=== PATIENT | male | born 1950 | race Caucasian/White ===

== ENCOUNTER 2020-08-30 07:57 | Outpatient (NON) | payer MEDICARE, SELFPAY ==
[2020-08-30 10:56] LABS: Influenza Control Positive
[2020-08-30 22:46] LABS: SARS-CoV-2 RNA PCR Negative
== END 2020-08-30 07:58 ==
PROVIDERS: PCP Internal Medicine; Visit Provider Nurse Practitioner
DX: R53.83 Other fatigue (principal); Z20.822 Contact with and (suspected) exposure to COVID-19
CPT/HCPCS: 87804; C9803; U0003; U0005

== ENCOUNTER 2020-09-06 10:08 | Outpatient (CLI) | payer MEDICARE, SELFPAY ==
--- NOTE | ~2020-09-06 | CT_ITS ---
EXAMINATION: CT abdomen pelvis w con DATE: 09/06/2020 11:24 INDICATION: Left lower quadrant abdominal pain. TECHNIQUE: Computed tomography (CT) of the abdomen and pelvis was performed with 100 mL Omnipaque-350 intravenous contrast. Automated exposure control and iterative reconstruction technique were employe d. The dose-length product was 302.10 mGy-cm. COMPARISON: None FINDINGS: Mild discoid atelectasis in the bilateral lower lobes. 7 x 4 x 3 mm pleural-based nodule at the poste rior right lower lobe. Heart size is normal. No pericardial or pleural effusion. Mild focal hepatic s teatosis at the ligamentum teres. Cholecystectomy clips the gallbladder fossa. Nonspecific splenomega ly measuring 15.3 cm in maximal length. Pancreas, right kidney and bilateral adrenal glands are bryan l. There are 3 subcentimeter low-attenuation left renal cysts. Normal appendix. In the left hemipelvi s there is prominent inflammatory stranding stranding a peripherally enhancing 4.3 x 3.4 x 3.6 cm loc ulated fluid collection which is likely extraperitoneal located along the medial margin of the left i liopsoas and obturator internus muscles. Portion of the stranding extends towards a diverticulum jaxon g the proximal sigmoid colon this could represent sequela of prior diverticulitis. There is mild mass effect upon the left wall of the bladder which is focally thickened and hyperemic in the region of t he stranding suggesting secondary reactive cystitis. No evident bowel wall thickening or obstruction. No free intraperitoneal gas or fluid. Mild thoracolumbar levocurvature with mild to moderate lumbar spondylosis. IMPRESSION: 1. 4.3 x 3.4 x 3.6 cm likely extraperitoneal abscess in the left hemipelvis which could represent seq uela of sigmoid diverticulitis. 2. Focal hyperemic wall thickening of the left side of the bladder adjacent to the inflammatory stran ding suggesting secondary reactive cystitis. No definitive fistulous tract appreciated, but would cor relate with urinalysis. 3. Likely benign 7 x 4 x 3 mm pleural-based nodule in the right lower lobe. If the patient is low ris k for lung cancer, no follow-up is needed. If the patient is high risk (i.e., history of smoking or a sbestos or significant radiation exposure), optional follow-up low-dose noncontrast chest CT could be considered at 12 months. Reviewed, dictated and finalized at location A. NG TESTER IMPRESSION: 1. 4.3 x 3.4 x 3.6 cm likely extraperitoneal abscess in the left hemipelvis whi ch could represent sequela of sigmoid diverticulitis. 2. Focal hyperemic wall thickening of the left side of the bladder adjacent to the inflammatory stranding suggesting secondary reactive cystitis. No definitiv e fistulous tract appreciated, but would correlate with urinalysis. 3. Likely benign 7 x 4 x 3 mm pleural-based nodule in the right lower lobe. If the patient is low risk for lung cancer, no follow-up is needed. If the patient is high risk (i.e., history of smoking or asbestos or significant radiation ex posure), optional follow-up low-dose noncontrast chest CT could be considered a t 12 months.
[2020-09-06 11:15] LABS: Estimated Glomerular Filt Rate > 60
== END 2020-09-06 10:09 | disposition home or self-care (01) ==
PROVIDERS: PCP Internal Medicine; Visit Provider Nurse Practitioner
DX: R10.32 Left lower quadrant pain (principal); N32.9 Bladder disorder, unspecified; R91.1 Solitary pulmonary nodule; K68.19 Other retroperitoneal abscess
CPT/HCPCS: 74177; Q9967

== ENCOUNTER → 2020-09-24 11:09 | Outpatient (CLI) | payer MEDICARE, SELFPAY ==
--- NOTE | ~2020-09-24 | CT_ITS ---
EXAMINATION: CT abdomen pelvis w con DATE: 09/24/2020 11:37 INDICATION: Diverticulitis. Perforation. Abscess. TECHNIQUE: Computed tomography (CT) of the abdomen and pelvis was performed with 100 cc Omnipaque 350 intravenous contrast. The dose-length product was 422.15 mGy-cm. Automated exposure control and iter ative reconstruction technique were employed. COMPARISON: CT dated 09/06/2020. FINDINGS: There is improving phlegmonous change in the left pelvis of the left hemipelvis, likely sequela of si gmoid diverticulitis. Decreasing size of abscess measuring 2.9 x 2.3 cm compared with 3.5 x 4.3 cm on prior examination. There is diffuse bladder wall thickening. Bladder is not well distended. There is focal fatty infiltration of the liver near the falciform. Lung bases unremarkable. Heart size normal . The liver, spleen, pancreas, adrenal glands and right kidney are unremarkable. There are small subcen timeter hypodensities of the left kidney, most likely benign cysts. There are cholecystectomy clips. Stable partially visualized right lower lobe nodule IMPRESSION: 1. Improved phlegmonous change and abscess in the left hemipelvis, likely sequela of sigmoid divertic ulitis. 2: Poorly distended bladder with bladder wall thickening which may be due to adjacent inflammation an d/or cystitis. 3: Partially visualized right lower lobe nodule. Recommend follow-up low dose CT in 12 months. Reviewed, dictated and finalized at location B. [facility] CARE COORDINATOR IMPRESSION: 1. Improved phlegmonous change and abscess in the left hemipelvis, likely seque la of sigmoid diverticulitis. 2: Poorly distended bladder with bladder wall thickening which may be due to ad jacent inflammation and/or cystitis. 3: Partially visualized right lower lobe nodule. Recommend follow-up low dose C T in 12 months.
[2020-09-24 11:28] LABS: Estimated Glomerular Filt Rate > 60
== END ==
PROVIDERS: Visit Provider Surgery
DX: K57.20 Diverticulitis of large intestine with perforation and abscess without bleeding (principal)
CPT/HCPCS: 74177; Q9967

== ENCOUNTER → 2021-01-12 03:42 | Outpatient (CLI) | payer MEDICARE, SELFPAY ==
[2021-01-12 19:45] LABS: SARS-CoV-2 RNA PCR Negative
== END ==
PROVIDERS: PCP Internal Medicine; Visit Provider Internal Medicine Gastroenterology
DX: Z01.812 Encounter for preprocedural laboratory examination (principal); Z20.822 Contact with and (suspected) exposure to COVID-19
CPT/HCPCS: C9803; U0003; U0005

== ENCOUNTER 2021-01-16 01:17 | Day surgery (SDC) | payer MEDICARE, SELFPAY ==
[2020-09-25 10:22] VITALS: BMI 22.1
[2021-01-01 15:11] VITALS: BMI 22.1
[2021-01-16 09:25] VITALS: BP 137/79; PULSE 69; RESP 16; TEMP 36.2; O2SAT 99
[2021-01-16] MEDS: LACTATED RINGERS 1,000 ML 150 ML IV CONT (09:34)
--- NOTE | 2021-01-16 09:57 | WPDANESEPPF ---
Anes - Initial Pre Proc Eval Procedure: Operation Date: 01/16/21 10:30 Proposed Procedures p Colonoscopy - Isai Patino MD Date/Time: 01/16/21 09:57 Surgeon: Isai Patino MD Pre Op Diagnosis: diverticulitis Patient Data Age: 70 Gender: M Height: 5 ft 10 in Weight: 69.2 kg Last Vital Signs Temp 97.1 F L 01/16/21 09:25 Pulse 69 01/16/21 09:25 Resp 16 01/16/21 09:25 BP 137/79 01/16/21 09:25 Pulse Ox 99 01/16/21 09:25 Allergies Allergy/AdvReac Type Severity Reaction Status Date / Time bee venom protein (honey bee) Allergy swelling Verified 01/16/21 09:23 Penicillins Allergy Swelling Verified 01/16/21 09:23 Home Medications Medication Instructions Recorded Confirmed Type No Home Medications 01/16/21 01/16/21 History Patient hx anesthesia problems: none Family hx anesthesia problems: none PMFSH Past Medical History Medical History History of prostate cancer Polysubstance dependence in early, early partial, sustained full, or sustained partial remission Prostate cancer Umbilical hernia (~08/2016) Surgical History Surgical History H/O prostatectomy History of cataract surgery Hx of cholecystectomy Family History Family History Father MRSA infection Mother COPD (chronic obstructive pulmonary disease) Social History Social History Smoking packs per day: 2 Smoking cigarettes per day: 40.0 Years smoked: 15 Smoking pack-years: 30.00 Smoking status: Former smoker Tobacco type: cigarettes Alcohol intake: former Substance use: former Substance use type: marijuana Living arrangements: with family Additional occupation/education comments: Landlord Spiritual care concerns: No Anes - Eval Final PreProcedure Day of Procedure 01/16/21 09:57 Patient weight: normal Heart: regular rate and rhythm Lungs: clear to auscultation Airway: Mallampati scale class II Neurological: alert and oriented Last oral intake: >/= 8 hours ASA classification: II Emergent: no Anesthetic plan: proceed Anesthesia type and monitoring: general GIVS and standard monitoring Informed Consent: The patient's anesthetic plan and its attendant risks and benefits were discussed with the patient/family/POA. Questions were solicited and answers provided to the satisfaction of the patient/family/POA.
--- NOTE | 2021-01-16 10:19 | PM.HPGS ---
History of Present Illness History of Present Illness Consent: Risks, benefits, and alternatives have been discussed and questions answered. Patient agrees to proceed with procedure. Chief complaint: diverticulitis Narrative: Shashi Garibay is a 70 year old male with last colonoscopy 10 years ago, since then in September had diverticulitis now asymptomatic. Review of Systems Constitutional: Constitutional: Denies headache(s) and Denies weakness Eyes: Eyes: Denies blurry vision ENT: Reports Normal hearing present, Denies headache(s) and Denies neck pain Cardiovascular: Cardiovascular: Denies chest pain and Denies dyspnea Respiratory: Respiratory: Denies dyspnea Gastrointestinal: Gastrointestinal: Reports no additional gastrointestinal complaints Genitourinary: Genitourinary: Denies dysuria Musculoskeletal: Musculoskeletal: Denies neck pain Integumentary/Breasts: Skin/Breast: Denies dry skin Neurologic: Reports Normal hearing present, Denies headache(s) and Denies weakness Psychiatric: Psychiatric: Denies anxiety Endocrine: Endocrine: Denies change in body appearance Hematologic/Lymphatic: Hematologic/Lymphatic: Denies easy bleeding Allergic/Immunologic: Allergic/Immunologic: Denies urticaria PMFSH Past Medical History Medical History History of prostate cancer Polysubstance dependence in early, early partial, sustained full, or sustained partial remission Prostate cancer Umbilical hernia (~08/2016) Surgical History Surgical History H/O prostatectomy History of cataract surgery Hx of cholecystectomy Family History Family History Father MRSA infection Mother COPD (chronic obstructive pulmonary disease) Social History Social History Smoking packs per day: 2 Smoking cigarettes per day: 40.0 Years smoked: 15 Smoking pack-years: 30.00 Smoking status: Former smoker Tobacco type: cigarettes Alcohol intake: former Substance use: former Substance use type: marijuana Living arrangements: with family Additional occupation/education comments: [employer] Spiritual care concerns: No Meds Home Medications and Allergies Home Medications Medication Instructions Recorded Confirmed Type No Home Medications 01/16/21 01/16/21 History Allergies Allergy/AdvReac Type Severity Reaction Status Date / Time bee venom protein (honey bee) Allergy swelling Verified 01/16/21 09:23 Penicillins Allergy Swelling Verified 01/16/21 09:23 Vital Signs Vital Signs - 24 hr 01/16/21 09:25 Temperature 97.1 F L Pulse Rate 69 Respiratory Rate 16 Blood Pressure 137/79 Pulse Oximetry 99 Exam Const: General: comfortable and no acute distress HENMT: General nose exam: Normal nares present Eyes: General: appearance normal, both eyes and all related structures Neck: Neck: no JVD Resp: Auscultation: clear to auscultation bilaterally Cardio: Rate: regular rate Rhythm: regular rhythm GI: Inspection: non-distended GI Palp: Yes Soft to palpation Skin: General skin exam: normal color Neuro: General: gait normal Speech: normal speech Extrem: General: normal to inspection Psych: Mental Status: mental status grossly normal Assessment and Plan Assessment and plan (1) Colon cancer screening: Code(s): Z12.11 - Encounter for screening for malignant neoplasm of colon Status: Acute Assessment and Plan: colonoscopy
[2021-01-16 10:38] VITALS: BP 105/68; PULSE 59; RESP 14; O2SAT 99
[2021-01-16 10:48] VITALS: BP 110/69; PULSE 72; RESP 19; O2SAT 100
[2021-01-16 10:58] VITALS: BP 103/66; PULSE 76; RESP 20; O2SAT 100
== END 2021-01-16 11:17 | disposition home or self-care (01) ==
PROVIDERS: PCP Internal Medicine; Visit Provider Internal Medicine Gastroenterology
PROC: 0DJD8ZZ Inspection of Lower Intestinal Tract, Via Natural or Artificial Opening Endoscopic (ICD-10-PCS; CPT 45378; principal; 2021-01-16 10:30)
DX: Z12.11 Encounter for screening for malignant neoplasm of colon (principal); D12.2 Benign neoplasm of ascending colon; K63.5 Polyp of colon; K57.30 Diverticulosis of large intestine without perforation or abscess without bleeding; K64.8 Other hemorrhoids; F19.21 Other psychoactive substance dependence, in remission; Z85.46 Personal history of malignant neoplasm of prostate; Z87.891 Personal history of nicotine dependence
CPT/HCPCS: 45385; 88305; J2704; J7120

== ENCOUNTER 2021-05-20 10:52 | Outpatient (CLI) | payer MEDICARE, SELFPAY ==
--- NOTE | ~2021-05-20 | XR_ITS ---
EXAMINATION: XR shoulder LT min 2V DATE: 05/20/2021 11:20 INDICATION: Left shoulder pain. TECHNIQUE: 4 views of left shoulder were obtained. COMPARISON: None. FINDINGS: Bone alignment is normal. No fracture. Joint spaces are well maintained. IMPRESSION: 1. Normal left shoulder. Reviewed, dictated and finalized at location A. IMPRESSION: 1. Normal left shoulder.
== END 2021-05-20 10:53 | disposition home or self-care (01) ==
PROVIDERS: PCP Internal Medicine; Visit Provider Clinical Nurse Specialist
DX: M25.512 Pain in left shoulder (principal)
CPT/HCPCS: 73030

== ENCOUNTER 2021-05-24 06:33 | Outpatient (CLI) | payer MEDICARE, SELFPAY ==
--- NOTE | ~2021-05-24 | MR_ITS ---
EXAMINATION: MR shoulder LT wo con DATE: 05/24/2021 07:30 INDICATION: Left shoulder pain TECHNIQUE: Magnetic resonance imaging (MRI) of the left shoulder was performed without intravenous co ntrast. Sequences included axial PD-weighted FS FSE, coronal oblique PD-weighted FS FSE, coronal obli que T2-weighted FS FSE, sagittal PD-weighted FS FSE, and sagittal T1-weighted SE. COMPARISON: None. FINDINGS: Coracoacromial arch: The acromion undersurface is curved in morphology (type II). The coracoacromial ligament is normal. M ild acromioclavicular osteoarthritis. Rotator cuff: The supraspinatus, infraspinatus and teres minor tendons are normal. The subscapularis tendon is norm al. Normal rotator cuff muscle bulk and signal. Biceps tendon, glenoid labrum and glenohumeral cartilage: Long head of the biceps tendon is normal. Normal anterosuperior sublabral foramen. There is amorphous increased signal suspicious for tear at the confluence of the superior glenoid labrum and the long h ead biceps tendon. Subtle partial-thickness linear tear near the chondral labral junction at the infe rior glenoid. More irregular tear extending across the thickened and globular anteroinferior labrum. Thickening of the adjacent inferior glenohumeral ligament consistent with scarring related to chronic at least partial tear. Glenohumeral cartilage is normal. Fluid: Physiologic amount of fluid in the glenohumeral joint and biceps tendon sheath. No loose osteochondra l bodies. No abnormal fluid signal in the subacromial/subdeltoid bursa to suggest bursitis. Bones: Normal marrow signal with no edema, fracture or abnormal marrow replacing process. IMPRESSION: 1. Tear of the anteroinferior to inferior glenoid labrum and adjacent anteroinferior glenohumeral lig ament without surrounding edema suggesting chronic Bankart lesion but without evident Hill-Sachs frac ture deformity. 2. Focal degenerative tearing of the biceps labral complex at the confluence of the labrum and long h ead biceps tendon. Reviewed, dictated and finalized at location A. IMPRESSION: 1. Tear of the anteroinferior to inferior glenoid labrum and adjacent anteroinf erior glenohumeral ligament without surrounding edema suggesting chronic Bankar t lesion but without evident Hill-Sachs fracture deformity. 2. Focal degenerative tearing of the biceps labral complex at the confluence of the labrum and long head biceps tendon.
== END 2021-05-24 06:34 | disposition home or self-care (01) ==
LOC: ANHIMG 06:40
PROVIDERS: PCP Internal Medicine; Visit Provider Clinical Nurse Specialist
DX: S43.492A Other sprain of left shoulder joint, initial encounter (principal)
CPT/HCPCS: 73221

== ENCOUNTER 2021-07-05 12:44 | Outpatient (CLI) | payer MEDICARE, SELFPAY ==
--- NOTE | ~2021-07-05 | XR_ITS ---
EXAMINATION: XR lg joint inject/asp w image DATE: 07/05/2021 13:28 INDICATION: Left shoulder pain. TECHNIQUE: A time-out was performed to verify the patient's name, date of , and procedure to b e performed. The procedure including the risks, benefits, and alternatives was discussed with the pat ient. Risks discussed included bleeding and infection. The patient understood the risks and agreed to proceed. The skin overlying the left glenoid humeral joint was prepped and draped in usual sterile fashion. Anesthetic was administered with 1% lidocaine subcutaneously. A 22 G needle was advanced u nder fluoroscopic guidance into the joint. Injection of 1 mL of Omnipaque 240 confirmed intra-articu lar position of the needle. Subsequently, injectate consisting of 3 mL 1% lidocaine and 1 mL 80 mg/m L Depo-Medrol was instilled. The needle was removed and the entry site was cleaned and dressed. The re were no immediate complications. Fluoroscopy exposure time was 0.0 minutes. The total number of im ages was 2. FINDINGS: Real-time fluoroscopy demonstrates the needle in the left glenohumeral joint. Patient's bravo n prior to procedure:/10. Patient's pain following the procedure: 0/10. IMPRESSION: 1. Fluoroscopy guided left glenohumeral joint injection of local anesthetic and steroid with decrease in the patient's presenting pain. Reviewed, dictated and finalized at location A. 3 PASTRY
== END 2021-07-05 12:45 | disposition home or self-care (01) ==
LOC: ANHIMG 12:49
PROVIDERS: PCP Internal Medicine; Visit Provider Orthopaedic Surgery
DX: M25.512 Pain in left shoulder (principal); M75.02 Adhesive capsulitis of left shoulder
CPT/HCPCS: 20610; 77002; J1040; Q9966

== ENCOUNTER 2022-04-10 10:03 | Outpatient (CLI) | payer MEDICARE, SELFPAY ==
[2022-04-10 18:52] LABS: Basophils Percent Auto 0.4 % (0.2-1.2); Eosinophils Percent Auto 0.7 % (0-4.4); Hematocrit 42.7 % (42.0-52.0); Hemoglobin 14.7 g/dL (14.0-18.0); Immature Granulocyte Absolute 0.02 K/mm3 (0.00-0.031); Immature Granulocyte Percent A 0.4 % (0-0.5); Lymphocytes Absolute Auto 1.87 K/mm3 (0.9-3.2); Lymphocytes Percent Auto 34.5 % (18.3-44.2); Mean Corpuscular HGB Conc 34.4 g/dl (32-36); Mean Corpuscular Hemoglobin 31.8 pg (26-34); Mean Corpuscular Volume 92.4 fl (80-100); Mean Platelet Volume 11.2 fl (7.4-10.4); Monocytes Absolute Auto 0.3 K/mm3 (0.1-0.6); Monocytes Percent Auto 5.9 % (2.6-8.5); Neutrophils Absolute Auto 3.2 K/mm3 (1.3-6.7); Neutrophils Percent Auto 58.1 % (45.5-73.1); Platelet Count Result 147 k/mm3 (150-375); Red Blood Count 4.62 M/mm3 (4.6-6.20); White Blood Count 5.4 K/mm3 (4.5-10.0)
[2022-04-10 18:59] LABS: Alanine Aminotransferase 16 U/L (6-50); Albumin Level 4.3 g/dL (3.5-5.1); Alkaline Phosphatase 80 U/L (38-126); Anion Gap 6 mmol/L (8-16); Aspartate Amino Transferase 33 U/L (17-59); Bilirubin,Total 1.4 mg/dL (0.2-1.3); Blood Urea Nitrogen 12 mg/dL (9-20); Calcium 10.5 mg/dL (8.4-10.2); Carbon Dioxide 30 mmol/L (22-30); Chloride 105 mmol/L (98-107); Cholesterol 156 mg/dL (0-200); Estimated Glomerular Filt Rate > 60; Glucose 81 mg/dL (65-110); HDL Direct 40 mg/dL; Potassium 4.7 mmol/L (3.4-5.0); Sodium 141 mmol/L (137-145); Triglycerides 74 mg/dL (<150)
[2022-04-10 19:10] LABS: LDL Cholesterol Direct 89 mg/dL
[2022-04-10 19:56] LABS: Vitamin D 25 Hydroxy 55.9 ng/mL
== END 2022-04-10 10:04 | disposition home or self-care (01) ==
PROVIDERS: PCP Internal Medicine; Visit Provider Clinical Nurse Specialist
DX: E78.5 Hyperlipidemia, unspecified (principal); E55.9 Vitamin D deficiency, unspecified; E21.3 Hyperparathyroidism, unspecified; E80.6 Other disorders of bilirubin metabolism; G47.9 Sleep disorder, unspecified; R42 Dizziness and giddiness
CPT/HCPCS: 36415; 80053; 80061; 82306; 83970; 84443; 85025

== ENCOUNTER → 2022-06-10 08:43 | Outpatient (CLI) | payer MEDICARE, SELFPAY ==
--- NOTE | ~2022-06-10 | DEXA_ITS ---
Bone Density Report Name: VICKY BENITEZ Age: 71 Sex: Male Ethnicity: White Date of : 1950 Indication: hyperparathyroidism; height loss; Referring Provider: Sailaja Mcintosh Study: Bone densitometry was performed. Exam Date: June 10, 2022 Accession number: [id number] Bone Density: Region BMD T-score Z-score Classification AP Spine (L1-L4) 1.106 0.1 1.0 Normal Femoral Neck (Left) 0.714 -1.6 -0.4 Osteopenia Total Hip (Left) 0.853 -1.2 -0.5 Osteopenia Femoral Neck (Right) 0.797 -1.0 0.2 Normal Total Hip (Right) 0.984 -0.3 0.4 Normal Total Hip Mean 0.919 -0.8 -0.1 Normal World Health Organization criteria for BMD impression classify patients as: Normal (T-score at or above -1.0), Osteopenia (T-score between -1.0 and -2.5), or Osteoporosis (T-score at or below -2.5). 10-year Fracture Risk(1): Major Osteoporotic Fracture 6.2% Hip Fracture 1.4% Reported Risk Factors: [place] (), Neck BMD=0.714, BMI=23.0 (1) FRAX(R) Version 3.08. Fracture probability calculated for an untreated patient. Fracture probability may be lower if the patient has received treatment. Clinical Information Provided by Patient: Has used the following medications: Vitamin D Has the following medical conditions: Hyperparathyroidism Patient maximum height was 70.5 No regular weight bearing exercise Does not regularly consume dairy products Drinks caffeinated beverages Impression: The patient has low bone mass, based on the Left Femoral Neck T-score. The patient has an estimated ten-year risk of hip fracture of 1.4% and an estimated ten-year risk of major fracture of 6.2%, based on the WHO FRAX algorithm. Discussion: BONE DENSITY IS LOW AT ONE OR MORE SKELETAL SITES. This patient's lowest T-score is low at one or more skeletal sites. It meets the World Health Organization's (WHO) criteria for ?low bone mass? (T-score between -1.0 and -2.5). The patient's 10-year risk of fracture as calculated by FRAX is less than the threshold where pharmacological therapy is recommended by the National Osteoporosis Foundation (NOF). However, all treatment decisions require clinical judgment and consideration of individual patient factors, including patient preferences, comorbidities, previous drug use, risk factors not captured in the FRAX model (e.g., frailty, falls, vitamin D deficiency, increased bone turnover, interval significant decline in bone density) and possible under or overestimation of fracture risk by FRAX. The patient should follow a healthful lifestyle (good nutrition with adequate calcium and vitamin D, and appropriate weight-bearing exercise). Follow-Up: Consider repeating this study in 2 to 3 years to reassess this patient's status, or sooner if there is some new clinical indication. Reported by: [facility] on 06/10
== END ==
PROVIDERS: PCP Internal Medicine; Visit Provider Clinical Nurse Specialist
DX: E21.3 Hyperparathyroidism, unspecified (principal); M85.852 Other specified disorders of bone density and structure, left thigh
CPT/HCPCS: 77080

== ENCOUNTER 2022-10-10 10:13 | Outpatient (CLI) | payer MEDICARE, SELFPAY ==
--- NOTE | ~2022-10-10 | NM_ITS ---
EXAMINATION: NM parathyroid imaging w spect DATE: 10/10/2022 13:56 INDICATION: Parathyroid adenoma TECHNIQUE: 18.4 mCi Tc99m sestamibi (Cardiolite) was administered by intravenous route. Anterior imag es of the neck were obtained at 10 minutes and 3 hours. Additional delayed 3 plane SPECT imaging was obtained. COMPARISON: None. FINDINGS/IMPRESSION: Persistent focus of activity on delayed images in the area of the deep inferior margin of the left th yroid lobe consistent with parathyroid adenoma. Reviewed, dictated and finalized at location A. ENGER OFFICE
== END 2022-10-10 10:14 | disposition home or self-care (01) ==
LOC: ANHIMG 10:18
PROVIDERS: PCP Internal Medicine; Visit Provider Otolaryngology
DX: D35.1 Benign neoplasm of parathyroid gland (principal); E21.3 Hyperparathyroidism, unspecified
CPT/HCPCS: 78071; A9500

== ENCOUNTER → 2022-10-27 09:28 | Outpatient (CLI) | payer MEDICARE, SELFPAY ==
--- NOTE | ~2022-10-27 | US_ITS ---
Thyroid ultrasound. Clinical History: Benign neoplasm left parathyroid gland Findings: Real-time sonography of the thyroid gland was performed. The right lobe measures 5.6 x 2.1 x 2.0 cm. The left lobe measures 6.0 x 2.3 x 1.6 cm. The isthmus is 4 mm in AP diameter. Several scattered bilateral subcentimeter hypoechoic or cystic nodules are present. Largest nodules i n the left midpole measuring 4 mm in diameter. Impression: No significant abnormality seen. Tiny thyroid nodules, as noted above, are of doubtful clinical signi ficance, and require no further follow-up. Reviewed, dictated and finalized at location . Impression: No significant abnormality seen. Tiny thyroid nodules, as noted above, are of d oubtful clinical significance, and require no further follow-up.
== END ==
PROVIDERS: PCP Internal Medicine; Visit Provider Otolaryngology
DX: D35.1 Benign neoplasm of parathyroid gland (principal); E04.2 Nontoxic multinodular goiter
CPT/HCPCS: 76536

== ENCOUNTER 2022-11-12 10:21 | Outpatient (CLI) | payer MEDICARE, SELFPAY ==
--- NOTE | 2022-11-12 10:30 | ECG_ITS ---
Measurements Intervals [place] Rate: 70 P: 80 [place]: 156 QRS: 30 QRSD: 91 T: 30 QT: 369 QTc: 399 Interpretive Statements SINUS RHYTHM INCOMPLETE RIGHT BUNDLE BRANCH BLOCK DELAYED PRECORDIAL R/S TRANSITION BORDERLINE ST-T WAVE ABNORMALITY- INFERIOR LEADS BASELINE ARTIFACT- I, II, III, AVR, AVL, AVF, V4-V6 BORDERLINE ECG NO PREVIOUS ECG AVAILABLE FOR COMPARISON Electronically Signed On 11-12-2022 12:32:46 CDT by Ammon Beth D.O.
== END 2022-11-12 10:22 | disposition home or self-care (01) ==
LOC: ANHSURGERY 10:27
PROVIDERS: PCP Internal Medicine; Visit Provider Otolaryngology
DX: Z87.891 Personal history of nicotine dependence (principal); Z01.818 Encounter for other preprocedural examination; I45.10 Unspecified right bundle-branch block
CPT/HCPCS: 93005

== ENCOUNTER 2022-11-18 00:30 | Day surgery (SDC) | payer MEDICARE, SELFPAY ==
--- NOTE | 2022-11-07 13:50 | PC.NURSE ---
Report to the Outpatient Waiting Room, entrance under the green pavilion located off [facility], at time _0830 NUC MED AT 0930 on date __11/18/22 . Planned Procedure Time: __1200 . Time changes happen often and if your time is changed the preop area will call you the afternoon before. - You and your visitor will be asked to self-screen and do not enter if you have any COVID symptoms. - Only one visitor is requested with a max of two and NO children visitors are allowed at this time. - The patient visitor may be requested to leave or wait in car when not with patient due to distancing restrictions. - A mask is optional within the hospital at this time. Patients may have clear liquids (water, carbonated beverages, clear teas, apple juice) until 3 hours prior to surgery with a maximum of 20 ounces. - No food from midnight until time of surgery - Infants may have breast milk until 4 hours before surgery, formula 6 hours prior to surgery. - Children will be allowed to drink immediately following surgery. If applicable, please bring a bottle or sippy cup to assist with drinking. Juice, water, soda, and popsicles are readily available. For infants on formula, please bring formula the day of surgery. Pacifiers are allowed. Take the following medications with a SIP of water the morning of surgery: ___NONE DO NOT STOP ANY OF YOUR OTHER PRESCRIPTION MEDICATIONS PRIOR TO SURGERY ?EXCEPT THE FOLLOWING Medications to discontinue per physician ALL VITAMINS/SUPPLEMENTS 3 DAYS PRE OP . LAST DOSE 11/14/22 Please no make-up, nail niuean, hairspray, perfume, deodorant, or body powder the day of surgery. No jewelry (including any body piercings) or valuables the day of surgery, leave them at home. Please take a shower or bath the night before, or the morning of, surgery with an antibacterial soap. Wear comfortable, loose fitting clothing. Children are encouraged to wear pajamas. - Jewelry must be removed prior to entering the operating room. Rings and piercings that are not removed may be cut off. - The hospital will not accept responsibility for valuables. - Please leave all valuables, including medications, at home the day of surgery. If you are going home after surgery, a licensed trolley coach driver must drive you home. - NO public transportation without another adult if you receive anesthesia. - We recommend that an adult stay with you for 24 hours following discharge. - We also recommend that you do not drive, make important decision, drink alcoholic beverages, or take any drugs that were not prescribed by your health care provider for at least 24 hours after your discharge time. For Pediatric surgeries, we recommend two adults accompany the child home. Follow any additional instructions given to you from your surgeon. If you or anyone in your household have experienced Covid symptoms in the past week, please notify your surgeon or the nurse liaison at the phone number below for possible testing. Telephone instructions given to ___PATIENT and asked if any additional questions and then verbalized understanding. Patient advised to call surgeon office or pre surgery nurse liaison [phone] if any additional questions.
[2022-11-07 13:58] VITALS: BMI 22.2
--- NOTE | 2022-11-17 17:54 | PM.IMHP ---
H&P: HPI History of Present Illness Date/Time: 11/17/22 17:54 Chief Complaint: hypercalcemia hyperparathyroidism parathyroid adenoma osteopenia Narrative: planned surgical procedure Review of Systems Review of Systems: All systems reviewed & are unremarkable except as noted in HPI and below [facility] Past Medical History Medical History History of prostate cancer Polysubstance dependence in early, early partial, sustained full, or sustained partial remission Prostate cancer Umbilical hernia (~08/2016) Surgical History Surgical History H/O prostatectomy History of cataract surgery Hx of cholecystectomy Family History Family History Father MRSA infection Mother COPD (chronic obstructive pulmonary disease) Sibling Throat cancer Social History Social History (Updated 10/02/22 @ 09:58 by LAURA Castro) Smoking packs per day: 2 Smoking cigarettes per day: 40.0 Years smoked: 15 Smoking pack-years: 30.00 Smoking status: Former smoker Tobacco type: cigarettes Smoking end date: 08/17/84 Alcohol intake: former Substance use: former Substance use type: marijuana Lack of Transportation: No Lack of Food: Never True Current Housing: I Have Housing Concerned About Future Housing: No Difficulty Paying Gas/Electric Bills: No Difficulty Paying for Meds: No Currently Unemployed: No Education: Associate Degree Difficulty w/ Childcare or Family Care: No Living arrangements: with family Occupation/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 Spiritual care concerns: No Meds Home Medications and Allergies Home Medications Medication Instructions Recorded Confirmed Type cetirizine 10 mg tablet (Zyrtec) 10 mg PO DAILY PRN Allergy Symptoms 03/05/21 11/07/22 History cholecalciferol (vitamin D3) 10 400 unit PO DAILY 03/05/21 11/07/22 History mcg (400 unit) capsule epinephrine 0.3 mg/0.3 mL 0.3 mg (0.3 mL) IM ONCE PRN 03/05/21 11/07/22 Rx injection, auto-injector hypersensitivity reaction #2 ea turmeric 400 mg capsule 400 mg PO DAILY 03/05/21 11/07/22 History mecobalamin (vitamin B12) 1,000 1,000 mcg PO DAILY 05/17/21 11/07/22 History mcg chewable tablet Allergies Allergy/AdvReac Type Severity Reaction Status Date / Time bee venom protein (honey bee) Allergy swelling Verified 11/07/22 13:38 Penicillins Allergy Swelling Verified 11/07/22 13:38 Exam Narrative: Normal ENT exam Assessment and Plan Assessment and plan (1) Parathyroid adenoma: Code(s): D35.1 - Benign neoplasm of parathyroid gland Status: Acute Assessment and Plan: OR 4 gland parathyroid exploration will start on left side with recurrent laryngeal nerve monitoring risks of surgery discussed biggest risk and a inability to find parathyroid adenoma. Patient aware I will not excise 3-1/2 glands if I can not find the adenoma will refer to high volume head and neck surgeon. Second largest risk for recurrent laryngeal nerve injury albeit rare and parathyroid exploration. Bleeding infection postoperative seroma from airway compromise postoperatively. Patient voiced understanding of these risks. Patient will have to take a prolonged course of postoperative calcium if adenoma identified. Drain placement drain removal. Patient voiced understanding of these risks and agreed. Will need preoperative sestamibi injection, will need preoperative parathyroid hormone.
[2022-11-18] VITALS (10 sets, daily range): BP systolic 104–175; BP diastolic 67–91; PULSE 70–110; RESP 12–20; TEMP 36.6; O2SAT 94–100
--- NOTE | ~2022-11-18 | NM_ITS ---
EXAMINATION: NM parathyroid injection only DATE: 11/18/2022 10:11 INDICATION: Parathyroid adenoma TECHNIQUE: 2.6 mCi Tc99m sestamibi (Cardiolite) was administered by intravenous route for marking for planned parathyroidectomy. No images were recorded. FINDINGS/IMPRESSION: Radiopharmaceutical injection for intraoperative identification of a parathyroid adenoma with no dmia rded imaging. See operative note for further detail. Reviewed, dictated and finalized at location A.
--- NOTE | 2022-11-18 07:15 | WPDHPUPDATE1 ---
History and Physical Update Update Date/Time: 11/18/22 07:15 History and Physical has been reviewed, including an updated exam of the patient. There are NO changes in the patient's condition. Risks, benefits, and alternatives have been discussed and questions answered. Patient agrees to proceed with procedure.
--- NOTE | 2022-11-18 08:50 | WPDANESEPPF ---
Anes - Initial Pre Proc Eval Procedure: Operation Date: 11/18/22 12:00 Proposed Procedures p Left Parathyroidectomy - Dante Okeefe MD Date/Time: 11/18/22 08:50 Surgeon: Dante Okeefe MD Pre Op Diagnosis: Parathyroid Adenoma Patient Data Age: 71 Gender: M Height: 1.78 m Weight: 70.35 kg Allergies Allergy/AdvReac Type Severity Reaction Status Date / Time Penicillins Allergy Severe Swelling Verified 11/18/22 08:33 bee venom protein (honey bee) Allergy Unknown swelling Verified 11/18/22 08:33 Home Medications Medication Instructions Recorded Confirmed Type cetirizine 10 mg tablet (Zyrtec) 10 mg PO DAILY PRN Allergy Symptoms 03/05/21 11/18/22 History cholecalciferol (vitamin D3) 10 400 unit PO DAILY 03/05/21 11/18/22 History mcg (400 unit) capsule epinephrine 0.3 mg/0.3 mL 0.3 mg (0.3 mL) IM ONCE PRN 03/05/21 11/07/22 Rx injection, auto-injector hypersensitivity reaction #2 ea turmeric 400 mg capsule 400 mg PO DAILY 03/05/21 11/18/22 History mecobalamin (vitamin B12) 1,000 1,000 mcg PO DAILY 05/17/21 11/18/22 History mcg chewable tablet ECG: Date of Service: 11/12/22 Procedure(s): CA 12 lead EKG Accession Number(s): [id number] cc: ~ ? Measurements Intervals? [place]? Rate: ? 70 ? P:? 80 [place]: ? 156? QRS:? 30 QRSD: ? 91 ? T:? 30 QT: ? 369? QTc:? 399? Interpretive Statements SINUS RHYTHM INCOMPLETE RIGHT BUNDLE BRANCH BLOCK DELAYED PRECORDIAL R/S TRANSITION BORDERLINE ST-T WAVE ABNORMALITY- INFERIOR LEADS BASELINE ARTIFACT- I, II, III, AVR, AVL, AVF, V4-V6 BORDERLINE ECG NO PREVIOUS ECG AVAILABLE FOR COMPARISON Electronically Signed On 11-12-2022 12:32:46 CDT by Ammon Beth D.O. Patient hx anesthesia problems: none Family hx anesthesia problems: none Results Review: All pre-operative results and documents have been reviewed as part of the pre-operative evaluation. [facility] Past Medical History Medical History History of prostate cancer Polysubstance dependence in early, early partial, sustained full, or sustained partial remission Prostate cancer Umbilical hernia (~08/2016) Surgical History Surgical History H/O prostatectomy History of cataract surgery Hx of cholecystectomy Family History Family History Father MRSA infection Mother COPD (chronic obstructive pulmonary disease) Sibling Throat cancer Social History Social History (Updated 10/02/22 @ 09:58 by LAURA Castro) Smoking packs per day: 2 Smoking cigarettes per day: 40.0 Years smoked: 15 Smoking pack-years: 30.00 Smoking status: Former smoker Tobacco type: cigarettes Smoking end date: 08/17/84 Alcohol intake: former Substance use: former Substance use type: marijuana Lack of Transportation: No Lack of Food: Never True Current Housing: I Have Housing Concerned About Future Housing: No Difficulty Paying Gas/Electric Bills: No Difficulty Paying for Meds: No Currently Unemployed: No Education: Associate Degree Difficulty w/ Childcare or Family Care: No Living arrangements: with family 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
[2022-11-18 09:45] LABS: Parathyroid Intact 203.9 pg/mL (7.5-53.5)
[2022-11-18] MEDS: ACETAMINOPHEN 500 MG TABLET 1000 MG PO (10:35)
[2022-11-18] MEDS: LACTATED RINGERS 1,000 ML 30 ML IV CONT ×2 (10:35→17:36)
[2022-11-18] MEDS: ceFAZolin 2 GM/D5W 50 ML 2 GM/50 ML BAG IVPB (13:04)
[2022-11-18] MEDS: LIDO 1%/EPINEPHRINE 1:100,000 50 ML VIAL 20 ML INFILTRATE (16:40)
[2022-11-18] MEDS: ceFAZolin SODIUM 1 GM VIAL 2 GM IV PUSH (17:01)
[2022-11-18 17:06] LABS: Parathyroid Intact 160.2 pg/mL (7.5-53.5)
[2022-11-18 17:24] LABS: Parathyroid Intact 110.5 pg/mL (7.5-53.5)
--- NOTE | 2022-11-18 18:05 | P.OP_ITS ---
Procedure Note - Detailed Date of Procedure 11/18/22 Pre-op Diagnosis Parathyroid Adenoma Post-op Diagnosis Same Procedure Performed excision of giant left-sided parathyroid adenoma Surgeon Dante Okeefe MD Anesthesia General Indications see above Findings large about 5 cm left-sided inferior based adenoid superior gland devascularized as well anterior to the recurrent laryngeal nerve nonvisualized throughout procedure Description of Procedure patient identified consent verified. Patient brought operating room. Time-out performed. General anesthesia induced endotracheal tube secured Nims monitoring tube. Patient prepped draped positioned procedure confirmed Nims monitoring tube confirmed. Sestamibi scan injected preop preop PTH 200. Collar incision made 1.5 fingerbreadths above the sternal notch/clavicles. This carried down through the dermis. Bovie electrocautery carried through the platysma subplatysmal flaps elevated dura hooks placed. Midline raphe identified carried down to the thyroid with bipolar electrocautery. Imaging was again reviewed confirm left-sided localization. Dissection was carried out deep to the sternothyroid around the thyroid lobe retracting it medially. Middle thyroid vein ligated. At this time a bulge was noted near the region 1 would expect to find the inferior thyroid artery excuse me inferior parathyroid. This was dissected noted to be very very large. Multiple biopsies were taken the entire mass necessitating time on the table to allow for frozen pathology to return all were confirmed to be parathyroid. A portion was resected and then more tumor was noted and connection to the posterior aspect of was previously resected. At this time the PTH was 2000. The decision was made to resect the entire mass given that all biopsy showed parathyroid adenoma. The mass was not necessarily stuck to anything. To be wedged between portion of the thyroid and perhaps the posterior lobe tubercle. Mass was resected about 5 cm in greatest dimension s uperior gland also devascularized. Recurrent laryngeal nerve appeared to be protected the entire time is was deep to the plane of surgery. Blood loss about 50 cc. Preop PTH 200 following several PTH dropped on 100. Decision was made to close. As the status of the nerve was unknown at the 2 left-sided glands were identified. Wound was copiously irrigated 7 Icelandic drain placed deep layer closed straps in the midline with 3-0 Vicryl interrupted sutures platysma deep dermal layer with 3-0 interrupted Vicryl sutures. Drain stitch was a 3-0 nylon. 4-0 Monocryl subdermal placed. Skin glue placed above this. Patient tolerated the procedure well no immediate complications. Voice will be checked in PACU. One more PTH will be checked in PACU. Blood loss about 50 cc. Care the patient given Anesthesiology. I performed all dictated portions of procedure. Estimated Blood Loss -50.0 Urine Output -500.0 Drains Yes Packing No Pathology Yes Complications No immediate complications Condition Stable Disposition PACU [facility] Billing Surgery - Charge Forward: Surgery Billing
[2022-11-18 18:14] LABS: Parathyroid Intact 69.1 pg/mL (7.5-53.5)
--- NOTE | 2022-11-18 18:34 | SUR.PHASEI ---
1830 - dr. parson at bedside talking with pt. dr. parson aware of PTH 69.1
[2022-11-18] MEDS: oxyCODONE HCL (*CRX) 5 MG TAB IR PO (19:49)
== END 2022-11-18 20:00 | disposition home or self-care (01) ==
PROVIDERS: PCP Internal Medicine; Visit Provider Otolaryngology
PROC: (CPT 60500; principal; 2022-11-18 12:00)
DX: D35.1 Benign neoplasm of parathyroid gland (principal); F19.21 Other psychoactive substance dependence, in remission; Z87.891 Personal history of nicotine dependence; Z85.46 Personal history of malignant neoplasm of prostate
CPT/HCPCS: 60500; 36415; 78808; 83970; 88304; 88305; 88331; A9270; A9500; J0330; J0690; J1100; J2405; J2704; J3010; J7120

== ENCOUNTER 2022-12-11 12:41 | Outpatient (CLI) | payer MEDICARE, SELFPAY ==
[2022-12-11 19:17] LABS: Magnesium 2.1 mg/dL (1.6-2.3)
[2022-12-11 19:18] LABS: Vitamin D 25 Hydroxy 51.6 ng/mL
[2022-12-11 19:27] LABS: Parathyroid Intact 65.8 pg/mL (7.5-53.5)
[2022-12-15 12:43] LABS: Ionized Calcium 4.9 mg/dL (4.7-5.5)
== END 2022-12-11 12:42 | disposition home or self-care (01) ==
LOC: ANHGOSHLAB 12:43
PROVIDERS: PCP Internal Medicine; Visit Provider Otolaryngology
DX: D35.1 Benign neoplasm of parathyroid gland (principal); E83.42 Hypomagnesemia; E83.51 Hypocalcemia
CPT/HCPCS: 36415; 82306; 82330; 83735; 83970

== ENCOUNTER 2023-01-15 10:03 | Outpatient (CLI) | payer MEDICARE, SELFPAY ==
[2023-01-15 18:53] LABS: Parathyroid Intact 91.1 pg/mL (7.5-53.5)
== END 2023-01-15 10:04 | disposition home or self-care (01) ==
LOC: ANHGOSHLAB 10:04
PROVIDERS: PCP Internal Medicine; Visit Provider Clinical Nurse Specialist
DX: D35.1 Benign neoplasm of parathyroid gland (principal)
CPT/HCPCS: 36415; 83970

== ENCOUNTER 2023-02-02 12:58 | Outpatient (CLI) | payer MEDICARE, SELFPAY ==
[2023-02-02 19:25] LABS: Anion Gap 4 mmol/L (8-16); Blood Urea Nitrogen 10 mg/dL (9-20); Calcium 8.9 mg/dL (8.4-10.2); Carbon Dioxide 28 mmol/L (22-30); Chloride 106 mmol/L (98-107); Estimated Glomerular Filt Rate > 60; Glucose 80 mg/dL (65-110); Potassium 4.2 mmol/L (3.4-5.0); Sodium 138 mmol/L (137-145)
== END 2023-02-02 12:59 | disposition home or self-care (01) ==
LOC: ANHGOSHLAB 13:01
PROVIDERS: PCP Internal Medicine
DX: N28.9 Disorder of kidney and ureter, unspecified (principal)
CPT/HCPCS: 36415; 80048

== ENCOUNTER 2023-08-03 11:35 | Outpatient (CLI) | payer MEDICARE, SELFPAY ==
[2023-08-03 20:27] LABS: Calcium 8.8 mg/dL (8.4-10.2)
[2023-08-03 20:35] LABS: Parathyroid Intact 75.4 pg/mL (7.5-53.5)
== END 2023-08-03 11:36 | disposition home or self-care (01) ==
PROVIDERS: PCP Internal Medicine; Visit Provider Otolaryngology
DX: E83.52 Hypercalcemia (principal)
CPT/HCPCS: 36415; 82310; 83970

== ENCOUNTER 2023-10-08 12:23 | Emergency (ER) | payer MEDICARE, SELFPAY ==
--- NOTE | ~2023-10-08 | XR_ITS ---
EXAMINATION: XR chest 2V DATE: 10/08/2023 13:36 INDICATION: Cough and congestion TECHNIQUE: PA and lateral views of the chest are obtained. COMPARISON: None available FINDINGS: The lungs are free of acute opacities. No pleural effusion or pneumothorax. The cardiomedia stinal silhouette is normal. There is moderate thoracic spondylosis. IMPRESSION: 1. No acute cardiopulmonary abnormality. Reviewed, dictated and finalized at location [facility]
[2023-10-08 12:32] VITALS: BP 130/69; PULSE 93; RESP 22; TEMP 36.5; O2SAT 99
[2023-10-08 13:18] LABS: Influenza A QL RT-PCR Negative (Negative); Influenza B QL RT-PCR Negative (Negative); SARS-CoV-2 RNA PCR Negative (Negative)
[2023-10-08 13:32] VITALS: O2SAT 99
--- NOTE | 2023-10-08 13:45 | ECG_ITS ---
Measurements Intervals [place] Rate: 90 P: 79 [place]: 146 QRS: 25 QRSD: 84 T: 64 QT: 368 QTc: 452 Interpretive Statements SINUS RHYTHM MILD NONSPECIFIC T-WAVE ABNORMALITY ABNORMAL ECG ] COMPARED TO ECG 11/12/2022 11:40:13 NO SIGNIFICANT CHANGES Electronically Signed On 10-09-2023 12:10:02 BLEACH ANALYST by Alex Wynn M.D.
--- NOTE | 2023-10-08 14:02 | ED.GENADULT ---
HPI - General Adult General Chief complaint: Upper Respiratory Infection Stated complaint: congestion Time Seen by Provider: 10/08/23 13:26 Source: patient Mode of arrival: ambulatory Limitations: no limitations History of Present Illness HPI narrative: This is a 72 year old male who presents to the ED with chief complaint of cough, congestion for the past 2 days. Patient reports the cough is productive at times, produced clear mucus. Reports subjective fevers and occasional shortness of breath. States the dyspnea is worse with exertion. Also endorses intermittent body aches and fatigue. Denies associated chest pain. He has concern for possible pneumonia. Denies abdominal pain, nausea, vomiting, back pain, numbness, weakness. Related Data Home Medications Medication Instructions Recorded Confirmed cetirizine 10 mg tablet (Zyrtec) 10 mg PO DAILY PRN Allergy Symptoms 03/05/21 11/21/22 cholecalciferol (vitamin D3) 10 400 unit PO DAILY 03/05/21 11/21/22 mcg (400 unit) capsule turmeric 400 mg capsule 400 mg PO DAILY 03/05/21 11/21/22 mecobalamin (vitamin B12) 1,000 1,000 mcg PO DAILY 05/17/21 11/21/22 mcg chewable tablet Allergies Allergy/AdvReac Type Severity Reaction Status Date / Time Penicillins Allergy Severe Swelling Verified 10/08/23 12:35 bee venom protein (honey bee) Allergy Unknown swelling Verified 10/08/23 12:35 Review of Systems Review of Systems: All systems as dictated in HPI [facility] Past Medical History Medical History (Updated 10/08/23 @ 14:43 by Niraj Camilo PA-C) History of prostate cancer Polysubstance dependence in early, early partial, sustained full, or sustained partial remission Prostate cancer Umbilical hernia (~08/2016) Vitamin D deficiency Surgical History Surgical History H/O prostatectomy History of cataract surgery Hx of cholecystectomy Family History Family History Father MRSA infection Mother COPD (chronic obstructive pulmonary disease) Sibling Throat cancer Social History Social History Smoking packs per day: 2 Smoking cigarettes per day: 40.0 Years smoked: 15 Smoking pack-years: 30.00 Smoking status: Former smoker Tobacco type: cigarettes Smoking end date: 08/17/84 Alcohol intake: former Substance use: former Substance use type: marijuana Lack of Transportation: No Lack of Food: Never True Current Housing: I Have Housing Concerned About Future Housing: No Difficulty Paying Gas/Electric Bills: No Difficulty Paying for Meds: No Currently Unemployed: No Education: Associate Degree Difficulty w/ Childcare or Family Care: No Living arrangements: with family 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 HEAD: Normocephalic, atraumatic. EYES: PERRLA and EOMI. ENT: Nares clear, no rhinorrhea or epistaxis. Mucous membranes moist. Oropharynx without tonsillar hypertrophy exudate or other lesions. NECK: Supple. No adenopathy or masses. CHEST: No respiratory distress. Clear to auscultation. No wheezes rales or rhonchi. 99% room air HEART: Regular rate and rhythm. No murmur heard. Normal peripheral pulses. ABDOMEN: Soft, nontender, nondistended, normal active bowel sounds. MSK: Normal range of motion. No edema. SKIN: Warm, dry, no rash. NEURO: Alert and oriented x3. No focal deficits. PSYCH: Normal mood and affect. Course Vital Signs Vital signs: Vital Signs Temperature 97.7 F 10/08/23 12:32 Pulse Rate 93 10/08/23 12:32 Respiratory Rate 22 H 10/08/23 12:32 Blood Pressure 130/69 10/08/23 12:32 Pulse Oximetry 99 10/08/23 12:32 Oxygen Delivery Room
[2023-10-08 14:19] LABS: Basophils Percent Auto 0.5 % (0.2-1.2); Eosinophils Absolute Auto 0.1 K/mm3 (0-0.3); Eosinophils Percent Auto 1.1 % (0-4.4); Hematocrit 39.1 % (42.0-52.0); Hemoglobin 13.5 g/dL (14.0-18.0); Immature Granulocyte Absolute 0.02 K/mm3 (0.00-0.031); Immature Granulocyte Percent A 0.3 % (0-0.5); Immature Platelet Fraction Pct 5.5 % (0.9-11.2); Lymphocytes Absolute Auto 1.05 K/mm3 (0.9-3.2); Lymphocytes Percent Auto 16.7 % (18.3-44.2); Mean Corpuscular HGB Conc 34.5 g/dl (32-36); Mean Corpuscular Hemoglobin 32.2 pg (26-34); Mean Corpuscular Volume 93.3 fl (80-100); Mean Platelet Volume 10.3 fl (7.4-10.4); Monocytes Absolute Auto 0.5 K/mm3 (0.1-0.6); Monocytes Percent Auto 8.3 % (2.6-8.5); Neutrophils Absolute Auto 4.6 K/mm3 (1.3-6.7); Neutrophils Percent Auto 73.1 % (45.5-73.1); Platelet Count Result 142 k/mm3 (150-375); Red Blood Count 4.19 M/mm3 (4.6-6.20); Red Cell Distribution Width 14.8 % (11.5-14.5); White Blood Count 6.3 K/mm3 (4.5-10.0)
[2023-10-08 14:29] LABS: Alanine Aminotransferase 26 U/L (6-50); Albumin Level 4.5 g/dL (3.5-5.1); Alkaline Phosphatase 77 U/L (38-126); Anion Gap 7 mmol/L (8-16); Aspartate Amino Transferase 32 U/L (17-59); Bilirubin,Total 2.1 mg/dL (0.2-1.3); Blood Urea Nitrogen 12 mg/dL (9-20); Calcium 8.9 mg/dL (8.4-10.2); Carbon Dioxide 25 mmol/L (22-30); Chloride 106 mmol/L (98-107); Estimated CRCL calculation 55 ml/min; Estimated Glomerular Filt Rate > 60; Glucose 91 mg/dL (65-110); Potassium 3.9 mmol/L (3.4-5.0); Sodium 138 mmol/L (137-145)
[2023-10-08 14:57] VITALS: BP 136/82; PULSE 86; RESP 18; O2SAT 99
== END 2023-10-08 14:58 | disposition home or self-care (01) ==
PROVIDERS: Emergency Medicine; Emergency Provider Physician Assistant; PCP Internal Medicine
DX: J06.9 Acute upper respiratory infection, unspecified (principal); Z20.822 Contact with and (suspected) exposure to COVID-19; E55.9 Vitamin D deficiency, unspecified; Z85.46 Personal history of malignant neoplasm of prostate; Z87.891 Personal history of nicotine dependence; R94.31 Abnormal electrocardiogram [ECG] [EKG]
CPT/HCPCS: 36415; 71046; 80053; 85025; 85055; 87636; 93005; 99283

== ENCOUNTER 2023-12-10 09:49 | Outpatient (CLI) | payer MEDICARE, SELFPAY ==
--- NOTE | ~2023-12-10 | CT_ITS ---
EXAMINATION: CT abdomen pelvis w con DATE: 12/10/2023 10:57 INDICATION: Abdominal pain TECHNIQUE: Computed tomography (CT) of the abdomen and pelvis was performed with 100 cc Omnipaque 350 intravenous contrast. The dose-length product was 321.81 mGy-cm. Automated exposure control and iter ative reconstruction technique were employed. COMPARISON: CT dated 09/24/2019. FINDINGS: Lung bases unremarkable. Heart size normal. No significant pleural or pericardial effusion. Status post cholecystectomy. There is expected prominence of the bile ducts. There is splenomegaly. The liver, pancreas, adrenal glands and kidneys are unremarkable. Nonobstructive bowel gas pattern. C olonic diverticulosis without evidence for diverticulitis. No free air or free fluid. No lymphadenopa thy. No significant vascular abnormality. Mild lumbar spondylosis. IMPRESSION: 1. Splenomegaly. 2: Status post cholecystectomy with expected prominence of the bile ducts. Reviewed, dictated and finalized at location B.
[2023-12-10 10:49] LABS: Estimated Glomerular Filt Rate > 60
== END 2023-12-10 09:50 | disposition home or self-care (01) ==
PROVIDERS: PCP Internal Medicine; Visit Provider Clinical Nurse Specialist
DX: R10.9 Unspecified abdominal pain (principal); R16.1 Splenomegaly, not elsewhere classified; Z90.49 Acquired absence of other specified parts of digestive tract
CPT/HCPCS: 74177; Q9967